=== PATIENT | female | born 2000 | race Caucasian/White ===

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

== ENCOUNTER 2019-02-15 17:07 | Emergency (ER) | payer OTHER ==
[~2019-02-15] VITALS: Ht 167.6 cm; Wt 113.0 kg
[~2019-02-15 17:07] MED LIST: CLIN300C10 PO; DOXY100T20 PO; IBUP-1542 PO
[2019-02-15 17:18] VITALS: Ht 167.6 cm; Wt 113.0 kg
--- NOTE | 2019-02-15 18:23 | ERD ---
ER Documentation Chief Complaint Chief Complaint STEPPED ON NEEDLE , PIECE OF NEEDLE STUCK ON RT FOOT HPI 19-year-old female presents with complaint of possible sewing needle in her right foot. States that she stepped on a needle at 12 PM today and thinks that the tip of the needle broke off and implanted in her foot. States that there is pain when she walks on it. Denies being up-to-date on her tetanus. Denies any fevers, chills, numbness, impaired range of motion. Allergic to sulfa ROS All systems reviewed and are negative except as per history of present illness. Medications Home Meds Active Scripts Hydrocodone/Acetaminophen (Barclay 5-325 Tablet) 1 Each Tablet, 1 TAB PO Q6H PRN for PAIN, #10 TAB Prov:LINDSAY SOUZA 02/15/19 Ibuprofen* (Motrin*) 600 Mg Tab, 600 MG PO Q6, #30 TAB Prov:LINDSAY SOUZA 02/15/19 Clindamycin Hcl* (Clindamycin Hcl*) 300 Mg Capsule, 300 MG PO TID for 10 Days, CAP Prov:KALEY YADAV 11/30/17 Doxycycline Hyclate* (Doxycycline Hyclate*) 100 Mg Tablet.dr, 100 MG PO BID for 7 Days, TAB Prov:IRA SAUER MD 11/23/17 Ibuprofen* (Motrin*) 600 Mg Tab, 600 MG PO Q6, #20 TAB Prov:IRA SAUER MD 11/23/17 Allergies Allergies: Coded Allergies: Sulfa (Sulfonamide Antibiotics) (Verified Allergy, Unknown, 11/25/17) PMhx/Soc Hx Alcohol Use: No Hx Substance Use: No Hx Tobacco Use: No FmHx Family History: No diabetes, No coronary disease, No other Physical Exam Vitals Vital Signs Date Temp Pulse Resp B/P (MAP) Pulse Ox O2 O2 Flow FiO2 Time Delivery Rate 02/15/19 98.5 66 18 138/80 100 Room Air 22:39 (99) 02/15/19 98.1 69 18 144/83 99 17:18 (103) Physical Exam Const: No acute distress Head: Atraumatic Eyes: Normal Conjunctiva ENT: Normal External Ears, Nose and Mouth. Neck: Full range of motion. No meningismus. Resp: Clear to auscultation bilaterally Cardio: Regular rate and rhythm, no murmurs Abd: Soft, non tender, non distended. Normal bowel sounds Skin: No petechiae or rashes Back: No midline or flank tenderness Ext: No cyanosis, or edema. Mild tenderness to palpation over the dorsal aspect of right foot proximal to the first great toe. No retained foreign bodies noted. No skin lesions noted. No discharge noted. Neur: Awake and alert Psych: Normal Mood and Affect Results 24 hrs Laboratory Tests Test 02/15/19 18:34 POC Beta HCG, Qualitative NEGATIVE Current Medications Medications Dose Sig/Armando Start Time Status Last (Trade) Ordered Route PRN Stop Time Admin Dose Reason Admin Diphtheria/ 0.5 ml ONCE ONCE 02/15/19 DC 02/15/19 Tetanus/Acell IM* 18:30 02/15/19 18:37 Pertussis 18:31 (Adacel) Lidocaine/ 20 ml ONCE ONCE 02/15/19 DC Epinephrine INJ 20:30 02/15/19 (Xylocaine 20:30 1%/ Epi (Mdv)) Bacitracin 1 applic ONCE ONCE 02/15/19 DC 02/15/19 (Bacitracin TOP 20:30 02/15/19 20:30 Oint (Ud)) 20:31 Lidocaine/ 20 ml ONCE ONCE 02/15/19 DC Epinephrine INJ 20:30 02/15/19 (Xylocaine 20:31 1%/ Epi (Mdv) 20 ml) Procedures/MDM DIAGNOSTIC IMAGING REPORT Patient: BRYAN LAMAR : 2000 Age: 19 Sex: F MR #: [id number] DOS: 02/15/19 1814 Ordering MD: LINDSAY SOUZA Location: [facility] Room/Bed: PROCEDURE: XR right foot. CLINICAL INDICATION: Pain. Concern for needle foreign body plantar soft tissues TECHNIQUE: AP, lateral and oblique views of the right foot were obtained. COMPARISON: None. FINDINGS: Mineralization is within normal limits. No fracture or osseous lesion is karina ntified. There is no evidence for dislocation. Joint spaces are preserved. The soft tissues are unremarkable. In the plantar soft tissues at the level of the first proximal phalanx is 8th and a needle foreign body measuring approximately 1.5 cm in length RPTAT:HJJR IMPRESSION: Confirmation of a metallic needle foreign body measuring 1.5 cm in length in the plantar soft tissues at the level of the first proximal phalangeal base of the right foot without associated osseous abnormality. Physician Evi Date Time Electronically viewed and signed by Oleksandr Godfrey Physician on 02/15/2019 19:48 JR/ CC: LINDSAY SOUZA [id number] Laceration Repair by me: Anesthesia: 1% lidocaine locally Location: Plantar aspect of right foot Tendon/Joint/Nerves: No injury Foreign body: None detected after copious irrigation and exploration Technique: Simple Interrupted Sutures Complexity: No subcutaneous sutures/mucosal repair/edge excision Post Closure Length: 1 cm Patient's bleeding was easily controlled in the department and there is no indication of anemia. No evidence of compartment syndrome, neurologic injury, vascular injury, open joint, tendon laceration, or foreign body. Patient is appropriate for outpatient follow up. 48 hour wound check. Scar minimization instructions given. X-rays were taken which showed that there was a needle in the plantar aspect of the right foot. I made a small incision but was unable to locate the needle. I closed the incision with 3 sutures. I advised the patient that she needs to follow-up with [facility] and gave her the number to Dr. Irwin. I also told patient she needs to follow-up in 2 days for wound check. Patient agreed to follow-up with Dr. Irwin as well as to return in 2 days for wound check. Given the nature of the wound I did not feel that prophylactic antibiotics are necessary. Patient was not up-to-date on tetanus so patient was given Tdap in the ER. I have low suspicion for neurovascular compromise, or any other emergent condition. Patient discharged with strict ER precautions. Patient advised to follow up with PMD. All questions answered at discharge. . Departure Diagnosis: Primary Impression: Retained foreign body Condition: Stable LINDSAY SOUZA Feb 15, 2019 18:23
[2019-02-15] MEDS ORDERED: DIPHTH/TET/ACEL PERTUSS (ADULT) 0.5 ML VIAL IM* ONE (18:30)
[2019-02-15] MEDS ORDERED: BACITRACIN 0.9 GM OINT TOP ONE (20:30)
[2019-02-15] MEDS ORDERED: LIDOCAINE 1%/EPI (1:100,000) (MDV) 20 ML INJ ONE (20:30)
[2019-02-15] MEDS ORDERED: LIDOCAINE 1%/EPI (MDV) 50 ML INJ INJ ONE (20:30)
[2019-02-15] MEDS ORDERED: HYDR-4011 PO (21:57)
[2019-02-15] MEDS ORDERED: IBUP-1542 PO (21:57)
[2019-02-15 22:39] VITALS: BP 138/80; PULSE 66; RESP 18
== END 2019-02-15 22:40 | disposition home or self-care (01) ==
LOC: FTE 17:07
DX: S91.121A Laceration with foreign body of right great toe without damage to nail, initial encounter (principal); W27.3XXA Contact with needle (sewing), initial encounter; Y92.9 Unspecified place or not applicable
CPT/HCPCS: 12001; 73630; 81025; 90471; Z7502; Z7610; 90715